=== PATIENT | female | born 2000 | race Caucasian/White ===

== ENCOUNTER 2020-09-27 15:43 | Emergency (ER) | payer SELFPAY ==
[~2020-09-27] VITALS: Ht 162.6 cm; Wt 87.1 kg
--- NOTE | 2020-09-27 16:44 | NUR ---
Pt states she took 6 tests. 5 were inconclusive and the 6th was positive. Pt has had 1 spontaneous . Pt states she has spotting right now, denied needing pad. Pt denies any other discharge. Pt laying in bed, connected to BP and O2 monitors. Call NADN. alex
[2020-09-27 17:13] LABS: ALBUMIN 3.8 g/dL (3.4-5.0); ANION GAP 7 mmol/L (5-15); CALCIUM 8.9 mg/dL (8.5-10.1); CHLORIDE 107 mmol/L (98-107); CREATININE 0.66 mg/dL (0.55-1.02)
[2020-09-27 17:18] LABS: ALANINE AMINOTRANSFERASE 29 U/L (12-78); ALKALINE PHOSPHATASE 82 U/L (45-117); BILIRUBIN,TOTAL 0.4 mg/dL (0.2-1.0)
[2020-09-27 17:27] LABS: MICROSCOPIC AUTO
[2020-09-27 17:33] LABS: BASOPHILS % (AUTO) 0 % (0-1); EOSINOPHILS % (AUTO) 0 % (1-7); LYMPHOCYTES % (AUTO) 21 % (22-44); MEAN CORPUSCULAR HEMOGLOBIN 29.7 pg (27.0-34.8); MEAN CORPUSCULAR HGB CONC 34.1 g/dL (32.4-35.8); MEAN PLATELET VOLUME 9.4 fL (7.4-10.4); MONOCYTES % (AUTO) 5 % (2-9); NEUTROPHILS % (AUTO) 74 % (42-75); PLATELET COUNT 202 x10^3/uL (130-400); RED BLOOD COUNT 4.86 x10^6/uL (3.82-5.3); RED CELL DISTRIBUTION WIDTH 13.1 % (9.6-15.2)
[2020-09-27 17:35] LABS: MD NO
[2020-09-27 17:41] VITALS: BP 103/65
--- NOTE | 2020-09-27 17:42 | NUR ---
Pt talking on phone, NATE. Visitor at bedside.
== END 2020-09-27 18:29 | disposition home or self-care (01) ==
LOC: ED 18:15
DX: N30.00 Acute cystitis without hematuria (principal); N92.1 Excessive and frequent menstruation with irregular cycle; F17.200 Nicotine dependence, unspecified, uncomplicated
CPT/HCPCS: 36415; 80053; 81001; 83690; 84703; 85025; 87086; 99283